=== PATIENT | male | born 1985 | race Caucasian/White ===

== ENCOUNTER 2017-01-27 10:11 | Emergency (ER) | payer BC ==
[2017-01-27] MEDS ORDERED: MOTRIN 600 MG PO ONE (10:32)
[2017-01-27] MEDS ORDERED: MOTRIN 600 MG ONE (10:36)
--- NOTE | 2017-01-27 10:39 | ERPHSYRPT ---
- History of Present Illness Time Seen by Provider: 01/27/17 10:32 Source: patient Exam Limitations: no limitations Physician History: 31-year-old white male arrives with complaint of pain in his right knee, right ankle symptoms since 1 hour 15 minutes. According to patient he was playing baseball slid in the place the injured his right ankle and right knee. He has mild pain in the right knee laterally also pain in the right lateral and anterior ankle worse with movement. He denies any other injuries. Past medical history is negative. Past surgical history includes labrum repair right shoulder. Patient does state that he is allergic to Naprosyn but he is able to take ibuprofen without problems. Social history patient denies tobacco alcohol or illicit drug use Method of Injury: sports injury Occurred: just prior to arrival (hour and 15 minutes prior to arrival) Severity of Pain-Max: moderate Severity of Pain-Current: mild Lower Extremities Pain: knee: right, ankle: right Modifying Factors: Improves With: movement Associated Symptoms: none Allergies/Adverse Reactions: bee venom protein (honey bee) Allergy (Verified 01/27/17 10:34) Hives naproxen Allergy (Verified 01/27/17 10:34) Hives - Review of Systems Constitutional: No Fever, No Chills Eyes: No Symptoms Ears, Nose, & Throat: No Symptoms Respiratory: No Cough, No Dyspnea Cardiac: No Chest Pain, No Edema, No Syncope Abdominal/Gastrointestinal: No Abdominal Pain, No Nausea, No Vomiting, No Diarrhea Genitourinary Symptoms: No Dysuria Musculoskeletal: Other (right ankle and knee pain) Skin: No Rash Neurological: No Dizziness, No Focal Weakness, No Sensory Changes Psychological: No Symptoms Endocrine: No Symptoms All Other Systems: Reviewed and Negative - Past Medical History Pertinent Past Medical History: No - Past Surgical History Past Surgical History: Yes Other Surgical History: labrum repair right shoulder - Nursing Vital Signs Nursing Vital Signs: Initial Vital Signs Temperature 97.6 F 01/27/17 10:28 Pulse Rate 68 01/27/17 10:28 Respiratory Rate 16 01/27/17 10:28 Blood Pressure 126/86 01/27/17 10:28 O2 Sat by Pulse Oximetry 100 01/27/17 10:28 Pain Scale Pain Intensity [] 7 Pain Intensity 6 - Physical Exam General Appearance: mild distress Eyes, Ears, Nose, Throat Exam: moist mucous membranes Neck Exam: non-tender, supple Cardiovascular/Respiratory Exam: chest non-tender, normal breath sounds, regular rate/rhythm, no respiratory distress Gastrointestinal/Abdominal Exam: non-tender, guarding Back Exam: normal inspection, normal range of motion Hips Exam: bilateral: non-tender, normal inspection, normal range of motion, no evidence of injury Legs Exam: bilateral leg: non-tender, normal inspection, normal range of motion , no evidence of injury Knees Exam: right knee: other (mild tenderness right medial knee with palpation and movement, right knee stable to anterior drawer, posterior drawer, medial collateral ligament stress, lateral collateral ligament stress), left knee: non-tender, normal inspection, normal range of motion Ankle Exam: right ankle: other (right ankle edema laterally tender with palpation anterior and laterally , decreased range of motion right ankle secondary to pain), left ankle: non-tender, normal inspection, normal range of motion Foot Exam: bilateral foot: non-tender, normal inspection, normal range of motion , no evidence of injury DTR - Lower Extremities Exam: ankle (R): 2+, ankle (L): 2+ Neuro/Tendon Exam: normal sensation, normal motor functions Mental Status Exam: alert, oriented x 3, cooperative Skin Exam: normal color, warm, dry SpO2 Interpretation: normal - Course Nursing assessment & vital signs reviewed: Yes - Radiology Exams Right Knee X-ray Interpretation: Interpreted by me, Negative, No Fracture, No Subluxation Right Ankle X-ray Interpretation: Interpreted by me (x ray right ankle: non displaced fracture distal fibula) Ordered Tests: Active Orders 24 hr Category Date Time Status Crutches STAT Care 01/27/17 12:15 Active Splint STAT Care 01/27/17 12:15 Active ANKLE (3 VIEWS) Stat Exams 01/27/17 10:31 Taken KNEE (3 VIEWS) Stat Exams 01/27/17 10:31 Taken Medication Summary Discontinued Medications Generic Name Dose Route Start Last Admin Trade Name Andrew PRN Reason Stop Dose Admin Ibuprofen 600 mg 01/27/17 10:32 01/27/17 10:37 Motrin 600 Mg PO 01/27/17 10:33 600 mg STAT ONE Administration Ibuprofen Confirm 01/27/17 10:36 Motrin 600 Mg Administered 01/27/17 10:37 Dose 600 mg .ROUTE .STK-MED ONE - Progress Progress: improved Progress Note: 01/27/17 10:37 31-year-old white male arrives with complaint of pain to his right ankle with moderate edema pain is located on the lateral and anterior ankle worse is noted with palpation decreased range of motion to the right ankle secondary to pain. Patient also states he has mild pain in his right medial knee with movement and palpation. Pain began after patient tried to slide into a base during a baseball game. Patient's right ankle is moderately edematous laterally there is tenderness with palpation anteriorly and laterally decreased range of motion right ankle secondary to pain. There is mild tenderness with palpation and movement to the patient's right medial knee Patient's dorsal pedal posterior tibial and popliteal pulses are intact 2 over 4. Patient's right knee is stable to anterior drawer posterior drawer medial collateral ligament stress lateral collateral ligament stress. Patient states he is allergic to Naprosyn but can take Motrin. Will give patient Motrin 600 mg by mouth go ahead and obtain x-rays of the right knee and ankle 01/27/17 12:16 Patient with nondisplaced fracture right distal fibula (my read)) X-ray right knee unremarkable patient with minimal pain in the right knee. Will go ahead and splint right ankle crutches no weight bearing right foot. Patient to follow-up with Dr. Mendiola or [facility]. - Departure Time of Disposition: 12:16 Departure Disposition: Home Clinical Impression: Fracture of fibula, distal, right, closed Qualifiers: Encounter type: initial encounter Fracture morphology: unspecified fracture morphology Qualified Code(s): S82.831A - Other fracture of upper and lower end of right fibula, initial encounter for closed fracture Strain of right knee Qualifiers: Encounter type: initial encounter Qualified Code(s): S86.911A - Strain of unspecified muscle(s) and tendon(s) at lower leg level, right leg, initial encounter Condition: Fair Critical Care Time: No Referrals: DOCTOR,NO FAMILY [Primary Care Provider] - Additional Instructions: Return home. Ice and elevate your right ankle 24-48 hours ice and elevate your right knee 24- 48 hours. Crutches no weight bearing right lower extremity. Follow-up with Dr. Hobbs or [facility] clinic tomorrow morning. [place] 5/325 #12 one to 2 orally every 4-6 hours as needed for pain. May also take Motrin every 6 hours with food as needed for pain. Return for acute distress or for severe symptoms. your x-rays have been preliminarily read they will be reread tomorrow you will be contacted if any discrepanancies are noted. Prescriptions: Hydrocodone Bit/Acetaminophen [[place] 5/325Mg] 1 tab PO Q4-6HPRN PRN #12 tablet PRN Reason: Pain
[2017-01-27 11:33] VITALS: O2SAT 98
[2017-01-27 12:11] VITALS: BP 114/73; PULSE 73
--- NOTE | 2017-01-27 21:23 | XRAY ---
Indication: Pain. Comparison: None 3 views of the right knee demonstrates small nonspecific suprapatellar effusion. No other bony, articular, or soft tissue abnormalities.
--- NOTE | 2017-01-27 21:25 | XRAY ---
Indication: Pain. Comparison: None 3 views of the right ankle demonstrates nondisplaced lateral malleolar acute fracture with anterolateral soft tissue swelling. No other bony, articular, or soft tissue abnormalities.
== END 2017-01-27 12:38 | disposition home or self-care (01) ==
LOC: ED 10:11 → MERGE 10:11 → ED 12:38
PROC: 2W3QX1Z Immobilization of Right Lower Leg using Splint (ICD-10-PCS; principal; 2017-01-27)
DX: S82.831A Other fracture of upper and lower end of right fibula, initial encounter for closed fracture (principal); S86.911A Strain of unspecified muscle(s) and tendon(s) at lower leg level, right leg, initial encounter; W21.89XA Striking against or struck by other sports equipment, initial encounter; Y93.64 Activity, baseball
CPT/HCPCS: 29515; 73562; 73610; 99284; A9270-GY